=== PATIENT | male | born 1995 | race Caucasian/White ===

== ENCOUNTER 2017-02-05 19:14 | Emergency (ER) | payer MEDICAID ==
[~2017-02-05] VITALS: Ht 180.3 cm; Wt 112.4 kg
[2017-02-05 19:19] VITALS: Ht 180.3 cm; Wt 112.4 kg
[2017-02-05] MEDS ORDERED: LIDOCAINE 1% (MDV) 20 ML INJ SC ONE (20:00)
[2017-02-05] MEDS ORDERED: CEPH-443 PO (20:30)
[2017-02-05] MEDS ORDERED: SULF1TAB31 PO (20:30)
[2017-02-05] MEDS ORDERED: HYDR-906 PO (20:30)
--- NOTE | 2017-02-05 20:37 | ERD ---
ER Documentation Chief Complaint Chief Complaint abscess/swelling/redness left wrist x 3 days HPI Patient is a 21-year-old male presented to the emergency department with complaints of abscess to his left upper extremity just proximal to the left wrist on the posterior side. States that it is firm. Associated with pain which is intermittent and worse at rest. He denies IV drug use. He denies fevers, chills, or other symptoms at this time. ROS All systems reviewed and are negative except as per history of present illness. Medications Home Meds Active Scripts Hydrocodone/Acetaminophen ([place] 5-325 Tablet) 1 Each Tablet, 1 TAB PO Q6H Y for PAIN, #12 TAB Prov:LUPE SIFUENTES PA-C 02/05/17 Cephalexin* (Keflex*) 500 Mg Capsule, 500 MG PO TID for 7 Days, #21 CAP Prov:LUPE SIFUENTES PA-C 02/05/17 Sulfamethoxazole/Trimethoprim* (Bactrim Ds* Tablet) 1 Each Tablet, 1 TAB PO BID , #14 TAB Prov:LUPE SIFUENTES PA-C 02/05/17 Allergies Allergies: Coded Allergies: No Known Drug Allergies (Verified Allergy, Unknown, 02/05/17) PMhx/Soc History of Surgery: Yes (R) ANTERIOR DELTOID SURGERY '12 , WISDOM TEETH '12) Hx Respiratory Disorders: Yes (HX OF ASTHMA) Hx Alcohol Use: Yes (OCCASIONALLY) Hx Substance Use: Yes (MARIJUANA) Hx Tobacco Use: Yes (1PPD) Smoking Status: Current every day smoker Physical Exam Vitals Vital Signs Date Time Temp Pulse Resp B/P Pulse Ox O2 Delivery O2 Flow Rate FiO2 02/05/17 19:19 98.8 98 20 138/73 98 Physical Exam Const: Nontoxic, well-appearing male in no acute distress. Vital signs within normal limits. Afebrile. Head: Atraumatic Eyes: Normal Conjunctiva ENT: Normal External Ears, Nose and Mouth..~ No meningismus. Skin: No rashes noted. Back: No midline or flank tenderness Ext: 2 cm x 2 cm indurated area with central pustule appearing on the dorsal surface of the left upper extremity just proximal to the left wrist. There is surrounding erythema. No significant fluctuance noted. There is no lymphatic streaking. Neur: Awake and alert Psych: Normal Mood and Affect Results 24 hrs Current Medications Medications (Trade) Dose Ordered Sig/Haven Route PRN Reason Start Time Stop Time Status Last Admin Dose Admin Lidocaine (Xylocaine 1% (Mdv) 20 ml) 20 ml ONCE ONCE SC 02/05/17 20:00 02/05/17 20:01 DC Procedures/MDM 21-year-old male presents to the emergency department for abscess to his left upper extremity. Abscess Incision and Drainage with irrigation by me: Location: Left upper extremity Anesthesia: Local 1% Lidocaine Technique: Incision with scalpel, unable to express material secondary to significant induration Packing: None Complications: Neurovascularly intact post procedure 48 hour wound check. Scar minimization instructions given. Patient's skin symptoms have stabilized while they have been evaluated in the department and are appropriate for outpatient care and work up. Exam and w/u not consistent w/ sepsis, deep space infection, or foreign body. Unable to drain the abscess secondary to induration and inflammatory tissue. Patient was put on antibiotics and told to return in 48 hours for wound recheck. Low suspicion for disseminated or complicated cellulitis or sepsis. No evidence of life-threatening pathology at time of discharge. Pt/family in agreement with discharge plan/diagnosis. Pt/family advised to return immediately with any new or worsening symptoms. Follow-up with primary care physician within the next 1-2 days. Disclaimer: Inadvertent spelling and grammatical errors are likely due to EHR/ dictation software use and do not reflect on the overall quality of patient care. Also, please note that the electronic time recorded on this note does not necessarily reflect the actual time of the patient encounter. Departure Diagnosis: Primary Impression: Abscess Condition: Fair Patient Instructions: Abscess, Incision And Drainage Referrals: [facility] YOU HAVE RECEIVED A MEDICAL SCREENING EXAM AND THE RESULTS INDICATE THAT YOU DO NOT HAVE A CONDITION THAT REQUIRES URGENT TREATMENT IN THE EMERGENCY DEPARTMENT. FURTHER EVALUATION AND TREATMENT OF YOUR CONDITION CAN WAIT UNTIL YOU ARE SEEN IN YOUR DOCTORS OFFICE WITHIN THE NEXT 1-2 DAYS. IT IS YOUR RESPONSIBILITY TO MAKE AN APPOINTMENT FOR FOLOW-UP CARE. IF YOU HAVE A PRIMARY DOCTOR --you should call your primary doctor and schedule an appointment IF YOU DO NOT HAVE A PRIMARY DOCTOR YOU CAN CALL OUR PHYSICIAN REFERRAL HOTLINE AT IF YOU CAN NOT AFFORD TO SEE A PHYSICIAN YOU CAN CHOSE FROM THE FOLLOWING [facility] [address] [facility] [address] [facility]. [facility] [address] [facility]. [facility] [address] [facility]. [facility] [address] [facility] [facility] [address] Additional Instructions: Call your primary care doctor TOMORROW for an appointment during the next 1-2 days.See the doctor sooner or return here if your condition worsens before your appointment time. LUPE SIFUENTES PA-C Feb 05, 2017 20:37
--- NOTE | 2017-02-05 20:37 | ERD ---
ER Documentation Chief Complaint Chief Complaint abscess/swelling/redness left wrist x 3 days HPI Patient is a 21-year-old male presented to the emergency department with complaints of abscess to his left upper extremity just proximal to the left wrist on the posterior side. States that it is firm. Associated with pain which is intermittent and worse at rest. He denies IV drug use. He denies fevers, chills, or other symptoms at this time. ROS All systems reviewed and are negative except as per history of present illness. Medications Home Meds Active Scripts Hydrocodone/Acetaminophen ([place] 5-325 Tablet) 1 Each Tablet, 1 TAB PO Q6H Y for PAIN, #12 TAB Prov:LUPE SIFUENTES PA-C 02/05/17 Cephalexin* (Keflex*) 500 Mg Capsule, 500 MG PO TID for 7 Days, #21 CAP Prov:LUPE SIFUENTES PA-C 02/05/17 Sulfamethoxazole/Trimethoprim* (Bactrim Ds* Tablet) 1 Each Tablet, 1 TAB PO BID , #14 TAB Prov:LUPE SIFUENTES PA-C 02/05/17 Allergies Allergies: Coded Allergies: No Known Drug Allergies (Verified Allergy, Unknown, 02/05/17) PMhx/Soc History of Surgery: Yes (R) ANTERIOR DELTOID SURGERY '12 , WISDOM TEETH '12) Hx Respiratory Disorders: Yes (HX OF ASTHMA) Hx Alcohol Use: Yes (OCCASIONALLY) Hx Substance Use: Yes (MARIJUANA) Hx Tobacco Use: Yes (1PPD) Smoking Status: Current every day smoker Physical Exam Vitals Vital Signs Date Time Temp Pulse Resp B/P Pulse Ox O2 Delivery O2 Flow Rate FiO2 02/05/17 19:19 98.8 98 20 138/73 98 Physical Exam Const: Nontoxic, well-appearing male in no acute distress. Vital signs within normal limits. Afebrile. Head: Atraumatic Eyes: Normal Conjunctiva ENT: Normal External Ears, Nose and Mouth..~ No meningismus. Skin: No rashes noted. Back: No midline or flank tenderness Ext: 2 cm x 2 cm indurated area with central pustule appearing on the dorsal surface of the left upper extremity just proximal to the left wrist. There is surrounding erythema. No significant fluctuance noted. There is no lymphatic streaking. Neur: Awake and alert Psych: Normal Mood and Affect Results 24 hrs Current Medications Medications (Trade) Dose Ordered Sig/Haven Route PRN Reason Start Time Stop Time Status Last Admin Dose Admin Lidocaine (Xylocaine 1% (Mdv) 20 ml) 20 ml ONCE ONCE SC 02/05/17 20:00 02/05/17 20:01 DC Procedures/MDM 21-year-old male presents to the emergency department for abscess to his left upper extremity. Abscess Incision and Drainage with irrigation by me: Location: Left upper extremity Anesthesia: Local 1% Lidocaine Technique: Incision with scalpel, unable to express material secondary to significant induration Packing: None Complications: Neurovascularly intact post procedure 48 hour wound check. Scar minimization instructions given. Patient's skin symptoms have stabilized while they have been evaluated in the department and are appropriate for outpatient care and work up. Exam and w/u not consistent w/ sepsis, deep space infection, or foreign body. Unable to drain the abscess secondary to induration and inflammatory tissue. Patient was put on antibiotics and told to return in 48 hours for wound recheck. Low suspicion for disseminated or complicated cellulitis or sepsis. No evidence of life-threatening pathology at time of discharge. Pt/family in agreement with discharge plan/diagnosis. Pt/family advised to return immediately with any new or worsening symptoms. Follow-up with primary care physician within the next 1-2 days. Disclaimer: Inadvertent spelling and grammatical errors are likely due to EHR/ dictation software use and do not reflect on the overall quality of patient care. Also, please note that the electronic time recorded on this note does not necessarily reflect the actual time of the patient encounter. Departure Diagnosis: Primary Impression: Abscess Condition: Fair Patient Instructions: Abscess, Incision And Drainage Referrals: [facility] YOU HAVE RECEIVED A MEDICAL SCREENING EXAM AND THE RESULTS INDICATE THAT YOU DO NOT HAVE A CONDITION THAT REQUIRES URGENT TREATMENT IN THE EMERGENCY DEPARTMENT. FURTHER EVALUATION AND TREATMENT OF YOUR CONDITION CAN WAIT UNTIL YOU ARE SEEN IN YOUR DOCTORS OFFICE WITHIN THE NEXT 1-2 DAYS. IT IS YOUR RESPONSIBILITY TO MAKE AN APPOINTMENT FOR FOLOW-UP CARE. IF YOU HAVE A PRIMARY DOCTOR --you should call your primary doctor and schedule an appointment IF YOU DO NOT HAVE A PRIMARY DOCTOR YOU CAN CALL OUR PHYSICIAN REFERRAL HOTLINE AT IF YOU CAN NOT AFFORD TO SEE A PHYSICIAN YOU CAN CHOSE FROM THE FOLLOWING [facility] [address] [facility] [address] [facility]. [facility] [address] [facility]. [facility] [address] [facility]. [facility] [address] [facility]. [facility] [address] Additional Instructions: Call your primary care doctor TOMORROW for an appointment during the next 1-2 days.See the doctor sooner or return here if your condition worsens before your appointment time. LUPE SIFUENTES PA-C Feb 05, 2017 20:37
--- NOTE | 2017-02-05 20:37 | ERD ---
ER Documentation Chief Complaint Chief Complaint abscess/swelling/redness left wrist x 3 days HPI Patient is a 21-year-old male presented to the emergency department with complaints of abscess to his left upper extremity just proximal to the left wrist on the posterior side. States that it is firm. Associated with pain which is intermittent and worse at rest. He denies IV drug use. He denies fevers, chills, or other symptoms at this time. ROS All systems reviewed and are negative except as per history of present illness. Medications Home Meds Active Scripts Hydrocodone/Acetaminophen ([place] 5-325 Tablet) 1 Each Tablet, 1 TAB PO Q6H Y for PAIN, #12 TAB Prov:LUPE SIFUENTES PA-C 02/05/17 Cephalexin* (Keflex*) 500 Mg Capsule, 500 MG PO TID for 7 Days, #21 CAP Prov:LUPE SIFUENTES PA-C 02/05/17 Sulfamethoxazole/Trimethoprim* (Bactrim Ds* Tablet) 1 Each Tablet, 1 TAB PO BID , #14 TAB Prov:LUPE SIFUENTES PA-C 02/05/17 Allergies Allergies: Coded Allergies: No Known Drug Allergies (Verified Allergy, Unknown, 02/05/17) PMhx/Soc History of Surgery: Yes (R) ANTERIOR DELTOID SURGERY '12 , WISDOM TEETH '12) Hx Respiratory Disorders: Yes (HX OF ASTHMA) Hx Alcohol Use: Yes (OCCASIONALLY) Hx Substance Use: Yes (MARIJUANA) Hx Tobacco Use: Yes (1PPD) Smoking Status: Current every day smoker Physical Exam Vitals Vital Signs Date Time Temp Pulse Resp B/P Pulse Ox O2 Delivery O2 Flow Rate FiO2 02/05/17 19:19 98.8 98 20 138/73 98 Physical Exam Const: Nontoxic, well-appearing male in no acute distress. Vital signs within normal limits. Afebrile. Head: Atraumatic Eyes: Normal Conjunctiva ENT: Normal External Ears, Nose and Mouth..~ No meningismus. Skin: No rashes noted. Back: No midline or flank tenderness Ext: 2 cm x 2 cm indurated area with central pustule appearing on the dorsal surface of the left upper extremity just proximal to the left wrist. There is surrounding erythema. No significant fluctuance noted. There is no lymphatic streaking. Neur: Awake and alert Psych: Normal Mood and Affect Results 24 hrs Current Medications Medications (Trade) Dose Ordered Sig/Haven Route PRN Reason Start Time Stop Time Status Last Admin Dose Admin Lidocaine (Xylocaine 1% (Mdv) 20 ml) 20 ml ONCE ONCE SC 02/05/17 20:00 02/05/17 20:01 DC Procedures/MDM 21-year-old male presents to the emergency department for abscess to his left upper extremity. Abscess Incision and Drainage with irrigation by me: Location: Left upper extremity Anesthesia: Local 1% Lidocaine Technique: Incision with scalpel, unable to express material secondary to significant induration Packing: None Complications: Neurovascularly intact post procedure 48 hour wound check. Scar minimization instructions given. Patient's skin symptoms have stabilized while they have been evaluated in the department and are appropriate for outpatient care and work up. Exam and w/u not consistent w/ sepsis, deep space infection, or foreign body. Unable to drain the abscess secondary to induration and inflammatory tissue. Patient was put on antibiotics and told to return in 48 hours for wound recheck. Low suspicion for disseminated or complicated cellulitis or sepsis. No evidence of life-threatening pathology at time of discharge. Pt/family in agreement with discharge plan/diagnosis. Pt/family advised to return immediately with any new or worsening symptoms. Follow-up with primary care physician within the next 1-2 days. Disclaimer: Inadvertent spelling and grammatical errors are likely due to EHR/ dictation software use and do not reflect on the overall quality of patient care. Also, please note that the electronic time recorded on this note does not necessarily reflect the actual time of the patient encounter. Departure Diagnosis: Primary Impression: Abscess Condition: Fair Patient Instructions: Abscess, Incision And Drainage Referrals: [facility] YOU HAVE RECEIVED A MEDICAL SCREENING EXAM AND THE RESULTS INDICATE THAT YOU DO NOT HAVE A CONDITION THAT REQUIRES URGENT TREATMENT IN THE EMERGENCY DEPARTMENT. FURTHER EVALUATION AND TREATMENT OF YOUR CONDITION CAN WAIT UNTIL YOU ARE SEEN IN YOUR DOCTORS OFFICE WITHIN THE NEXT 1-2 DAYS. IT IS YOUR RESPONSIBILITY TO MAKE AN APPOINTMENT FOR FOLOW-UP CARE. IF YOU HAVE A PRIMARY DOCTOR --you should call your primary doctor and schedule an appointment IF YOU DO NOT HAVE A PRIMARY DOCTOR YOU CAN CALL OUR PHYSICIAN REFERRAL HOTLINE AT IF YOU CAN NOT AFFORD TO SEE A PHYSICIAN YOU CAN CHOSE FROM THE FOLLOWING [facility] [address] [facility] [address] [facility]. [facility] [address] [facility]. [facility] [address] [facility]. [facility] [address] [facility]. [facility] [address] Additional Instructions: Call your primary care doctor TOMORROW for an appointment during the next 1-2 days.See the doctor sooner or return here if your condition worsens before your appointment time. LUPE SIFUENTES PA-C Feb 05, 2017 20:37
== END 2017-02-05 20:42 | disposition home or self-care (01) ==
LOC: FTE 19:14
DX: L02.414 Cutaneous abscess of left upper limb (principal); J45.909 Unspecified asthma, uncomplicated; F17.210 Nicotine dependence, cigarettes, uncomplicated
CPT/HCPCS: 10060; Z7502